=== PATIENT | female | born 1975 ===

== ENCOUNTER 2019-06-11 05:20 | Inpatient (IN) | payer OTHER ==
--- NOTE | 2019-06-10 13:27 | NUR ---
ADMITTED PT AND GAVE INSTRUCTIONS VIA [employer] #[id number].
[2019-06-11] VITALS (16 sets, daily range): BP systolic 104–158; BP diastolic 55–86
[~2019-06-11] VITALS: Ht 157.5 cm; Wt 88.5 kg
[2019-06-11] MEDS ORDERED: TOPIRAMATE25 MG ORAL (06:07)
[2019-06-11] MEDS ORDERED: JUNEL FE 1 MG-1 EACH PO (06:07)
[2019-06-11] MEDS ORDERED: ZANTAC150 MG ORAL (06:07)
[2019-06-11] MEDS ORDERED: LR 1000ml 1,000 ML IVLG SCH (06:17)
--- NOTE | 2019-06-11 06:19 | Anethesia Preoperative Eval ---
Anesthesia Pre-op PMH/ROS General Date of Evaluation: Jun 11, 2019 Time of Evaluation: 06:54 Anesthesiologist: David ASA Score: ASA 3 Mallampati Score Class I : Soft palate, uvula, fauces, pillars visible Class II: Soft palate, uvula, fauces visible Class III: Soft palate, base of uvula visible Class IV: Only hard plate visible Mallampati Classification: Class II Surgeon: Codey Diagnosis: Back Pain Surgical Procedure: Bilateral L4-5 Microdecompression Anesthesia History: none Family History: no anesthesia problems Allergies: Coded Allergies: No Known Allergies (Unverified , 06/10/19) Medications: see eMAR Patient NPO?: Yes NPO Date: Jun 10, 2019 NPO Time: 2129 Past Medical History Cardiovascular: Reports: HTN Gastrointestinal/Genitourinary: Reports: GERD Neurologic/Psychiatric: Reports: other - Migranes Endocrine: Reports: DM Other: obesity - BMI37 PSxH Narrative: Breast Aug, Abdominoplasty Anesthesia Pre-op Phys. Exam Physician Exam Last Vital Signs Date Time Temp Pulse Resp B/P (MAP) Pulse Ox O2 Delivery O2 Flow Rate FiO2 06/11/19 05:52 Room Air Constitutional: NAD Neurologic: CN 2-12 intact Cardiovascular: RRR Respiratory: CTA Gastrointestinal: S/NT/ND Airway Exam Mallampati Score: Class II MO: full ROM: limited Teeth: intact Anesthesia Pre-op A/P Labs Urine Test Test 06/11/19 05:35 Urine HCG, Qualitative Negative (NEGATIVE) Risk Assessment & Plan Assessment: ASA 3 Plan: GA, SED, GlideScope Go Status Change Before Surgery: No Pre-Antibiotics Dru Grams Ancef IV Given Within 1 Hr of Incision: Yes Time Given: 07:11 Man Hernandez MD Jun 11, 2019 06:19
[2019-06-11] MEDS ORDERED: Rocuronium Bromide 50mg/5ml Inj IV ONE (06:21)
[2019-06-11] MEDS ORDERED: oxyCODONE HCL/Acetaminophen 5/325mg ORAL PRN (06:30)
[2019-06-11] MEDS ORDERED: Atropine Sulfate 0.4mg/ml inj IVP PRN (06:30)
[2019-06-11] MEDS ORDERED: Labetalol 5mg/ml 20ml vial IV PRN (06:30)
[2019-06-11] MEDS ORDERED: Midazolam 2mg/2ml Inj IVP PRN (06:30)
[2019-06-11] MEDS ORDERED: Meperidine 50mg/ml Inj(FOR RIGORS ONLY) IVP PRN (06:30)
[2019-06-11] MEDS ORDERED: HYDROcodone/Acetamin 5/325 tab ORAL PRN (06:30)
[2019-06-11] MEDS ORDERED: fentaNYL 100 mcg/2 mL IV PRN (06:30)
[2019-06-11] MEDS ORDERED: Metoclopramide 10mg/2ml Inj IVP PRN (06:30)
[2019-06-11] MEDS ORDERED: Acetaminophen (Non formulary) 100 ML IV ONE (06:30)
[2019-06-11] MEDS ORDERED: DiphenhydrAMINE 50mg/ml Inj IVP PRN (06:30)
[2019-06-11] MEDS ORDERED: LORazepam Inj 2mg/ml 1ml IV PRN (06:30)
[2019-06-11] MEDS ORDERED: Hydromorphone 0.5mg/0.5ml inj IVP PRN (06:30)
[2019-06-11] MEDS ORDERED: HYDROcodone/Acetamin 7.5/325 tab ORAL PRN (06:30)
[2019-06-11] MEDS ORDERED: Bupivacaine w/Epi 0.5% 30ml Vial INJ ONE (06:36)
[2019-06-11] MEDS ORDERED: Bacitracin 50000 Units Vial ONE (06:36)
[2019-06-11] MEDS ORDERED: Gelfoam Size TOPIC ONE (06:36)
[2019-06-11] MEDS ORDERED: Thrombin 5000 units TOPIC ONE ×2 (06:36→06:37)
[2019-06-11] MEDS ORDERED: Lidocaine 1% MPF 10mg/ml 5ml ONE (06:45)
[2019-06-11] MEDS ORDERED: Sodium Chloride 10ml vial INJ ONE (06:45)
[2019-06-11] MEDS ORDERED: Lidocaine 1% Plain 30 ml INJ ONE (06:45)
[2019-06-11] MEDS ORDERED: fentaNYL 100 mcg/2 mL IV ONE (06:46)
--- NOTE | 2019-06-11 06:57 | Pre-Procedure Note/Attestation ---
Pre-Procedure Note/Attestation Complete Prior to Procedure Planned Procedure: bilateral Indications for Procedure Pre-Operative Diagnosis: Transitional segment L5/s1 HNP L4/5 Attestation I attest that I discussed the nature of the procedure; its benefits; risks and complications; and alternatives (and the risks and benefits of such alternatives ), prior to the procedure, with the patient (or the patient's legal termite control service representative). I attest that, if there was a reasonable possibility of needing a blood transfusion, the patient (or the patient's legal termite control service representative) was given the [facility] standardized written summary, pursuant to the [place] Blood Safety Act ([place] Health and Safety Code # 1645, as amended). I attest that I re-evaluated the patient just prior to the surgery and that there has been no change in the patient's H&P, except as documented below: Fortino Alegre MD Jun 11, 2019 06:57
[2019-06-11] MEDS ORDERED: Sterile Water Irrig 1000ml IRRIG ONE (07:00)
[2019-06-11] MEDS ORDERED: LR 1000ml ONE (07:00)
[2019-06-11] MEDS ORDERED: Propofol 1,000mg/ 100ml btl IV ONE (07:00)
[2019-06-11] MEDS ORDERED: NS Irrig 1000ml IRRIG ONE ×2 (07:16→07:49)
--- NOTE | 2019-06-11 07:43 | Immediate Post-Op Evaluation ---
Immediate Post-Op Evalulation Immediate Post-Op Evalulation Procedure: Bilateral L4-5 Microdecompression Date of Evaluation: Jun 11, 2019 Time of Evaluation: 09:49 IV Fluids: 600 LR Blood Products: 0 Estimated Blood Loss: 25 Urinary Output: 0 Blood Pressure Systolic: 158 Blood Pressure Diastolic: 86 Pulse Rate: 67 Respiratory Rate: 16 O2 Sat by Pulse Oximetry: 100 Temperature (Fahrenheit): 98.5 Pain Score (1-10): 2 Nausea: No Vomiting: No Complications 0 Patient Status: awake, reacts, patent, extubated, none Hydration Status: adequate Dru Grams Ancef IV Given Within 1 Hr of Incision: Yes Time Given: 07:11 Man Hernandez MD Jun 11, 2019 07:43
--- NOTE | 2019-06-11 07:44 | 48 Hour Post Anesthesia Eval ---
Post Anesthesia Evaluation Procedure: Bilateral L4-5 Microdecompression Date of Evaluation: Jun 11, 2019 Time of Evaluation: 12:16 Blood Pressure Systolic: 144 0: 73 Pulse Rate: 74 Respiratory Rate: 18 Temperature (Fahrenheit): 98.6 O2 Sat by Pulse Oximetry: 100 Airway: patent Nausea: No Vomiting: No Pain Intensity: 3 Hydration Status: adequate Cardiopulmonary Status: Stable Mental Status/LOC: patient returned to baseline Follow-up Care/Observations: 0 Post-Anesthesia Complications: 0 Follow-up care needed: ready to discharge Man Hernandez MD Jun 11, 2019 07:44
[2019-06-11] MEDS ORDERED: Glycopyrrolate 0.2mg/ml 1ml Vial ONE (08:49)
[2019-06-11] MEDS ORDERED: Neostigmine 1mg/ml 10ml Inj ONE (08:49)
--- NOTE | 2019-06-11 09:15 | Brief Operative Note ---
Immediate Post Operative Note Operative Note Chief Complaint: left greater than right buttocks pain with ambulation and sitting. LBP. Pre-op Diagnosis: Transitional segment L5/s1 HNP L4/5 Procedure: Left L4/5, Bear L5/S1 microdecompression Post-op Diagnosis: same- Findings: consistent w/pre-op dx studies Anesthesia: general Specimen: none Complications: none Condition: stable Fluids: per record Estimated Blood Loss: minimal Drains: none Implant(s) used?: No Fortino Alegre MD Jun 11, 2019 09:15
[2019-06-11] MEDS ORDERED: HYDROmorphone 1mg/ml Carpuject IVP PRN (10:15)
--- NOTE | 2019-06-11 11:33 | Diagnostic Imaging Report ---
Indication: Intraoperative imaging COMPARISON: None FINDINGS: 3 fluoroscopic images were obtained intraoperatively. Localization images posteriorly at L4-5 demonstrated on multiple crosstable views. Fluoroscopic time 13 seconds. IMPRESSION: Intraoperative imaging as described above
--- NOTE | 2019-06-11 11:42 | NUR ---
NURSE NOTES: Patient admitted to unit at 1050 via bed, accompanied by RN. Received report from Inge VARGAS. Patient is awake but drowsy, no acute distress noted, patient reporting she is comfortable at this time. Posterior dressing assessed clean, dry, intact. Neuro check assessed intact, on 2L NC. Belongings brought and reviewed by outpatient nurse. Patient's home medications reviewed and sent to pharmacy. Accuchecks scheduled q8 hours per order. Right hand IV intact and patent. Patient oriented to room/unit, updated on plan of care for the day. Per report from PACU nurse, Dr. Tran on internal med for patient, will contact for further orders. Side rails upx3, bed low and locked, call light in reach. Will continue to monitor.
[2019-06-11] MEDS: HYDROcodone/Acetamin 10/325 tab ORAL PRN ×2 (13:52→18:35)
--- NOTE | 2019-06-11 14:49 | NUR ---
PT EVALUATION NOTE Patient seen for initial evaluation, see complete evaluation for details. Patient presents with pain and impaired mobility s/p lumbar surgery. Patient requires SBA for bed mobility, transfers and ambulation with FWW. Patient educated in back precautions and log roll technique. Patient will benefit from skilled inpatient PT intervention to educate patient in proper mobility observing back precautions and to increase endurance for mobility. Anticipate discharge home once medically cleared by MD. DME needs to be determined based on patient's progress, may benefit from use of FWW. Addendum: 06/11/19 at 1450 by MARKO LEPE PT Amended: Links added.
[2019-06-11] MEDS: ceFAZolin 1gm/50ml Premix 50 ML IV SCH ×2 (15:24→23:29)
--- NOTE | 2019-06-11 15:51 | NUR ---
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 98.5 HR 73 RR 16 B/P 158/84 SIMPLE MASK IS: IVF NS @ 100ML/HR CEFAZOLIN IV ADMITTED TO MED/SURG MED/SURG STATUS
--- NOTE | 2019-06-11 16:02 | NUR ---
NURSE NOTES: Contacted Dr. Tran regarding patient's home medications, did not receive contact back from .
--- NOTE | 2019-06-11 16:36 | General Progress Note ---
Assessment/Plan Assessment/Plan: Transitional segment L5/s1 HNP L4/5 Left L4/5, Bear L5/S1 microdecompression PLAN 1. incentive spirometry 2. SCD 3. PT evaluation and therapy 4. Hydration 5. Pain management 6. discharge once stable with outpatient follow up Subjective Allergies: Coded Allergies: No Known Allergies (Unverified , 06/10/19) Subjective care noted and reviewed post op care noted Objective Last 24 Hour Vital Signs Date Time Temp Pulse Resp B/P (MAP) Pulse Ox O2 Delivery O2 Flow Rate FiO2 06/11/19 16:00 97.7 73 19 118/67 (84) 97 06/11/19 13:50 97.7 70 16 124/74 (91) 98 06/11/19 12:50 97.1 76 16 123/76 (92) 96 06/11/19 11:50 98.2 75 16 118/73 (88) 97 06/11/19 11:20 98.4 76 16 118/72 (87) 95 06/11/19 10:50 97.9 69 17 123/77 (92) 96 06/11/19 10:45 99.3 68 13 126/76 98 Nasal Cannula 3 06/11/19 10:33 99.3 06/11/19 10:30 66 15 121/71 97 Nasal Cannula 3 06/11/19 10:15 69 16 125/67 96 Nasal Cannula 3 06/11/19 10:03 69 14 135/82 97 Nasal Cannula 3 06/11/19 09:55 71 19 146/86 100 Simple Mask 6 06/11/19 09:48 70 20 139/81 100 Simple Mask 6 06/11/19 09:43 70 20 143/82 100 Simple Mask 6 06/11/19 09:38 98.5 73 16 158/86 99 Simple Mask 6 06/11/19 09:37 74 18 100 06/11/19 09:36 67 16 100 06/11/19 05:52 Room Air Intake and Output 06/10/19 06/11/19 19:00 07:00 # Voids 1 Laboratory Tests 06/11/19 05:35: Urine HCG, Qualitative Negative Height (Feet): 5 Height (Inches): 2.00 Weight (Pounds): 195 Objective WDWN NAD clear breath sounds bilaterally without rhonchi or wheeze [id number] without MRG NABS nontender no HSM no CCE nonfocal Marcus Tran MD Jun 11, 2019 16:36
--- NOTE | 2019-06-11 19:39 | NUR ---
HAND-OFF: Report given to Dayanna VARGAS.
[2019-06-12] VITALS (7 sets, daily range): BP systolic 104–130; BP diastolic 55–80
[2019-06-12] MEDS: HYDROcodone/Acetamin 10/325 tab ORAL PRN ×6 (00:31→21:06)
--- NOTE | 2019-06-12 03:33 | NUR ---
NURSES NOTES: Initially received pt sleeping. Upon rounds, patient was, up, alert and oriented x4. Answered all questions appropriately. No signs or symptoms of distress, unlabored breathing pattern. Claims that Withee 10-325 mg given at 1830 was effective, stating pain level was acceptable at a 3. All due meds given, accu-check done bed side. 0030 Pt stated pain was 6/10. Withee 10-325 mg given 0030- effective. Pt requested that pain med be given ATC from now on to avoid breakthrough pain. Bed at lowest level, call light within reach. Pt will continue to be monitored.
--- NOTE | 2019-06-12 07:29 | NUR ---
HAND-OFF: Report given to VIRGINIA Verma.
--- NOTE | 2019-06-12 08:38 | NUR ---
NURSE NOTES: received patient sitting in a chair having breakfast. gael soaresjoaquin applied bilateral LE. IS @ bedside and utilizes it. no acute distress noted. surgical drsg on the lower back dry and intact. uses walker to ambulate. IV access patent and intact. went back to bed. SCDs' applied on BLE. IVF infusing well. call light is within reach. siderails are upx3 and in the lowest position. bed is locked @ all times. will cont to monitor.
--- NOTE | 2019-06-12 15:48 | General Progress Note ---
Assessment/Plan Assessment/Plan: Transitional segment L5/s1 HNP L4/5 Left L4/5, Bear L5/S1 microdecompression PLAN 1. incentive spirometry 2. SCD 3. PT evaluation and therapy 4. Hydration- taking adequate 5. Pain management 6. discharge once stable with outpatient follow up Subjective Allergies: Coded Allergies: No Known Allergies (Unverified , 06/10/19) Subjective care noted and reviewed post op care noted tolerating fluids ambulating Objective Last 24 Hour Vital Signs Date Time Temp Pulse Resp B/P (MAP) Pulse Ox O2 Delivery O2 Flow Rate FiO2 06/12/19 13:36 98.4 06/12/19 12:00 98.4 80 18 124/80 (95) 96 06/12/19 09:00 Room Air 06/12/19 08:58 70 119/71 (87) 06/12/19 08:00 98.7 77 17 109/60 (76) 97 06/12/19 04:00 98.2 74 18 120/73 (89) 96 06/12/19 00:00 98.6 77 16 104/55 (71) 96 06/11/19 21:00 Room Air 06/11/19 20:00 98.6 98 18 104/55 (71) 77 06/11/19 16:00 97.7 73 19 118/67 (84) 97 Intake and Output 06/11/19 06/12/19 19:00 07:00 Intake Total 1890 ml 1050 ml Output Total 25 ml Balance 1865 ml 1050 ml Intake Oral 240 ml IV Total 1650 ml 1050 ml Output Estimated Blood Loss 25 ml # Voids 2 Height (Feet): 5 Height (Inches): 2.00 Weight (Pounds): 195 Objective WDWN NAD clear breath sounds bilaterally without rhonchi or wheeze [id number] without MRG NABS nontender no HSM no CCE nonfocal Marcus Tran MD Jun 12, 2019 15:48
--- NOTE | 2019-06-12 19:19 | NUR ---
HAND-OFF: Report given to Roselyn.
[2019-06-13 00:24] VITALS: BP 104/57
[2019-06-13] MEDS: HYDROcodone/Acetamin 10/325 tab ORAL PRN ×3 (01:03→09:05)
[2019-06-13 04:00] VITALS: BP 134/79
--- NOTE | 2019-06-13 04:45 | NUR ---
NURSES NOTES: Patient alert and oriented x4. No outward signs or symptoms of distress. Breathing is even and unlabored. Patient requests that norco 10-325 mg be given ATC. Patient will continue to be monitored. Bed at lowest level. Call light within reach.
--- NOTE | 2019-06-13 07:34 | NUR ---
HAND-OFF: Report given to Nuzhat Ivy RN.
--- NOTE | 2019-06-13 07:35 | NUR ---
NURSE NOTES: Received report from SAM Alan. Rounding done with outgoing nurse. Pt a/o x 4, in bed. No respiratory distress noted. c/o back surgical pain as 5/10. Pain medicine will be given as MD ordered. Bed in lowest position, call light within reach. Will continue to monitor.
[2019-06-13 08:00] VITALS: BP 131/74
--- NOTE | 2019-06-13 08:53 | NUR ---
NURSE NOTES: Reconcile meds with Dr. Tran. ordered continue all home meds.
--- NOTE | 2019-06-13 08:53 | General Progress Note ---
Assessment/Plan Assessment/Plan: Transitional segment L5/s1 HNP L4/5 Left L4/5, Bear L5/S1 microdecompression PLAN 1. incentive spirometry 2. SCD 3. PT evaluation and therapy 4. Hydration- taking adequate 5. Pain management 6. discharge home; 4 day rx of norco given impression, plan, and exam edited and reviewed in detail care discussed with RN Subjective Allergies: Coded Allergies: No Known Allergies (Unverified , 06/10/19) Subjective care noted and reviewed post op care noted tolerating fluids ambulating Objective Last 24 Hour Vital Signs Date Time Temp Pulse Resp B/P (MAP) Pulse Ox O2 Delivery O2 Flow Rate FiO2 06/13/19 08:00 97.4 74 18 131/74 (93) 95 06/13/19 04:00 98.1 75 17 134/79 (97) 95 06/13/19 00:24 99.0 82 18 104/57 (73) 96 06/12/19 21:00 Room Air 06/12/19 20:00 98.1 78 17 130/75 (93) 96 06/12/19 17:35 99.1 06/12/19 16:00 99.1 79 16 122/57 (78) 95 06/12/19 12:00 98.4 80 18 124/80 (95) 96 06/12/19 09:00 Room Air 06/12/19 08:58 70 119/71 (87) Intake and Output 06/12/19 06/13/19 18:59 06:59 Intake Total 640 ml Balance 640 ml Intake Oral 240 ml IV Total 400 ml Height (Feet): 5 Height (Inches): 2.00 Weight (Pounds): 195 Objective WDWN NAD clear breath sounds bilaterally without rhonchi or wheeze [id number] without MRG NABS nontender no HSM no CCE nonfocal Marcus Tran MD Jun 13, 2019 08:53
[2019-06-13] MEDS ORDERED: NORCO 5-325 TA1 EACH ORAL (09:01)
--- NOTE | 2019-06-13 10:55 | NUR ---
NURSE NOTES: Discharge instruction was given. Medication pt brought from home was given. IV removed. Arm band removed. Pt a/o x 4. Pt discharged with her family in stable condition.
--- NOTE | 2019-06-13 22:45 | Operative Note - Dictated ---
DATE OF OPERATION: 06/11/2019 PREOPERATIVE DIAGNOSES: 1. Transitional segment, lumbosacral spine. 2. Stenosis with traumatic aggravation, L5-S1 and left L4-L5. POSTOPERATIVE DIAGNOSES: 1. Transitional segment, lumbosacral spine. 2. Stenosis with traumatic aggravation, L5-S1 and left L4-L5. PROCEDURES PERFORMED: 1. Bilateral L5-S1 hemilaminotomy with decompression foraminotomy. 2. Left L4-L5 hemilaminotomy with decompression foraminotomy. 3. Modifier 22 applied, as the patient has significantly high BMI. 4. Use of intraoperative microscope. SURGEON: Fortino Alegre M.D. TIMBER INSPECTOR: None. ANESTHESIOLOGIST: Man Hernandez M.D. ANESTHESIA: General endotracheal combined anesthetic. INTRAOPERATIVE FINDINGS: 1. Confirmed stenosis, L5-S1 bilaterally. 2. Left mild lateral recess stenosis, L4-L5. COMPLICATIONS: None. ESTIMATED BLOOD LOSS: Minimal. Healy not used. INDICATIONS FOR PROCEDURE: A pleasant female with a significant traumatic spondylopathy of L4-L5 and L5-S1. The patient had transitional segment and MRI reports may indicate decompressed level to the L4-L5. Potentially the first motion segment is considered to be L5-S1. The patient failed a reasonable amount of conservative treatment. She had a clinical lumbar radiculopathy, buttock pain and low back pain with difficulty standing secondary to stenosis at L5-S1 and mild stenosis and disk bulge of L4-L5. The patient was consented in the office for single-level microdecompression. However, after discussion with the patient and the patient had predominantly left-sided lumbosacral pain as well as buttock pain and in light of the MRI demonstrating mild lateral recess stenosis at L4-L5 as well, I decided to include left L4-L5 microdecompression procedure as this would not increase the risk significantly and would benefit the patient more than the risk than complicate the patient's surgery. DESCRIPTION OF PROCEDURE: The patient was positively identified and subsequently taken to the operating room intubated by the anesthesiologist and subsequently positioned prone on the Richi frame with the abdomen hanging free. Lumbodorsal region was marked and a localizing x-ray was taken. Subsequently, after prepping and draping in the usual sterile fashion, antibiotics were delivered and surgical pause was undertaken. Incision was made and the L5-S1 level was exposed. A localizing x-ray was taken. Subsequently, after self-retaining retractors brought onto the field, the right side L5-S1 hemilaminotomy with decompression foraminotomy was completed successfully with good decompression of the foramen as well as lateral recess under direct visualization with the microscope. I mobilized the retractors to the left side and performed a similar decompression to left L4-L5 and left L5-S1. The patient tolerated the procedures well. Intraoperative findings were lateral recess stenosis of L4-L5 on the left side and right L5-S1 level was significantly stenotic with the disc protrusion as well as foraminal stenosis noted. Wound was copiously irrigated. No complications were noted. Hemostasis was obtained and subsequently the fascia was reapproximated with #1 Vicryl, 2-0 Vicryl for the dermis and 3-0 Monocryl for the skin. There were no complications. Dressings were applied and the patient was turned supine in stable condition. The patient was taken to the recovery room in stable condition. Fortino Alegre M.D. DR: JACKELINE JOB#: [id number] CC:
--- NOTE | 2019-06-14 07:36 | Discharge Summary ---
Discharge Summary Hospital Course Date of Admission Jun 11, 2019 at 05:20 Date of Discharge Jun 13, 2019 at 10:30 Admitting Diagnosis lumbar radiculopathy Reason for Hospitalization: elective surgery HPI Yennifer Garrido , 44 year old female , was admitted on Jun 11, 2019 at 05:20 for Lumbar Radiculopathy. Patient was admitted for elective surgery. Consultations Dr Tran -IM Procedures s/p 06/11/[address] Alegre 1. Bilateral L5-S1 hemilaminotomy with decompression foraminotomy. 2. Left L4-L5 hemilaminotomy with decompression foraminotomy. 3. Modifier 22 applied, as the patient has significantly high BMI. 4. Use of intraoperative microscope. Hospital Course status post surgery course of recovery uneventful initially IV fluids s/p perioperative antibiotics neurovascular status closely monitored, remained stable incision clean , dry , and intact pain management was addressed , and pain was controlled remained hemodynamically stable ambulated with PT fall precautions maintained; safe for ambulation DVT prophylaxis with SCD provided use of incentive spirometry was encouraged while in the bed tolerated diet , IV fluids discontinued antiemetics were on board as needed voided freely bowel regimen instituted patient was stable for discharge discharge instructions provided prescription for analgesic provided follow up with surgeon in clinic as outpatient as advised by surgeon FINAL DIAGNOSES 1. Transitional segment, lumbosacral spine. 2. Stenosis with traumatic aggravation, L5-S1 and left L4-L5. 3. Herniated nucleus pulposa L4-5 4. s/p Left L4/5, bilateral L5/S1 microdecompression Discharge Medications Continued Medications: Hydrocodone Bit/Acetaminophen 5-325* ([place] 5-325*) 1 Each Tablet 1 TAB ORAL Q4H PRN for For Pain, #20 TAB 0 Refills (This prescription has been renewed) Noreth A-Et Estra/Fe Fumarate (Junel Fe 1 Mg-20 Mcg Tablet) 1 Each Tablet 1 EACH PO DA, TAB (This prescription has been renewed) Ranitidine Hcl* (Zantac*) 150 Mg Tablet 300 MG ORAL HS, #30 TAB 0 Refills Topiramate* (Topamax*) 25 Mg Tablet 25 MG ORAL TWICE A DAY, #60 TAB 0 Refills (This prescription has been renewed) Discharge Condition Upon Discharge: stable Discharge Disposition Patient was discharged to Home () Discharge Instructions Discharge Instructions Special Instructions I have been assigned to complete a D/C Summary on this account. I was not involved in the patient management Porsha Guzman NP Jun 14, 2019 07:36
== END 2019-06-13 10:30 | disposition home or self-care (01) | DRG 517 ==
LOC: SDSOVERFLO 05:20 → 3E 10:53
PROC: 01NR0ZZ Release Sacral Nerve, Open Approach (ICD-10-PCS; principal; 2019-06-11 07:00)
PROC: 01NB0ZZ Release Lumbar Nerve, Open Approach (ICD-10-PCS; principal; 2019-06-11 07:00)
DX: M51.16 Intervertebral disc disorders with radiculopathy, lumbar region (principal); Q76.49 Other congenital malformations of spine, not associated with scoliosis; M48.07 Spinal stenosis, lumbosacral region; M48.061 Spinal stenosis, lumbar region without neurogenic claudication; I10 Essential (primary) hypertension; K21.9 Gastro-esophageal reflux disease without esophagitis; E11.9 Type 2 diabetes mellitus without complications; E66.9 Obesity, unspecified; Z68.37 Body mass index [BMI] 37.0-37.9, adult
CPT/HCPCS: 36415; 72020; 76000; 81025; 82962; 86850; 86900; 86901; 87081; J2405; J2710

== ENCOUNTER 2019-06-19 14:41 | Emergency (ER) | payer OTHER ==
[~2019-06-19] VITALS: Ht 160 cm; Wt 88.5 kg
[~2019-06-19 14:41] MED LIST: JUNEL FE 1 MG-1 EACH PO; NORCO 5-325 TA1 EACH ORAL; TOPIRAMATE25 MG ORAL; ZANTAC150 MG ORAL
[2019-06-19 14:49] VITALS: BP 127/73
--- NOTE | 2019-06-19 14:55 | NUR ---
ED Nurse Note: patient walked into ED from home and requesting her back surgery site to be checked, patient reports that surgical tape is "getting inside her surgical wound." patient is alert awake x4 ambulatory steady giat, breathing unlabored and even.
--- NOTE | 2019-06-19 15:14 | Emergency Room Report ---
History of Present Illness General Chief Complaint: General Complaint Source: Patient Present Illness HPI 44-year-old female patient presents to the ER complaining of " my incision site wound dressing is stuck in wound". Reports that she had lower back surgery [address] Alegre. Denies fever vomiting chills. Denies denies pain. Denies other aggravating or relieving factors. States able to walk without difficulty. Allergies: Coded Allergies: No Known Allergies (Unverified , 06/10/19) Patient History Past Medical History: see triage record Last Menstrual Period: 04/2019 Now: No Reviewed Nursing Documentation: PMH: Agreed; PSxH: Agreed Nursing Documentation-PMH Past Medical History: No History, Except For Hx Cardiac Problems: Yes Hx Asthma: Yes Hx Diabetes: Yes - PREDIABETIC-DIET CONTROLLED Hx Cancer: No Hx Gastrointestinal Problems: No Hx Neurological Problems: Yes - HX MIGRAINES-LAST EPISODE 06/03/2019 Review of Systems All Other Systems: negative except mentioned in HPI Physical Exam Vital Signs Date Time Temp Pulse Resp B/P (MAP) Pulse Ox O2 Delivery O2 Flow Rate FiO2 06/19/19 14:49 99.3 85 18 127/73 (91) 96 Room Air Sp02 EP Interpretation: reviewed, normal General Appearance: well appearing, no apparent distress, alert, GCS 15, non- toxic Head: normocephalic, atraumatic Eyes: bilateral eye normal inspection, bilateral eye PERRL ENT: hearing grossly normal, normal pharynx, no angioedema, normal voice, uvula midline, moist mucus membranes Neck: full range of motion Respiratory: lungs clear, normal breath sounds, no rhonchi, no respiratory distress, no accessory muscle use, no wheezing, speaking full sentences Musculoskeletal: back normal, digits/nails normal, gait/station normal, normal range of motion, non-tender Neurologic: alert, oriented x3, responsive, motor strength/tone normal, sensory intact Skin: other - 2-3cm healing incision site at lower lumbar spine, clean, dry, intact, no drainage, scabbing noted, minimal erythema at incision site, no surrounding erythema, no drainage, no warmth to touch, bandage lying over wound not in wound Medical Decision Making PA Attestation Dr. Rouse is my supervising Physician whom patient management has been discussed with. Diagnostic Impression: Primary Impression: Presence of surgical incision ER Course Pt. presents to the ED c/o surgical incision site wound dressing stuck in incision. Ddx considered but are not limited to surgical pain, wound infection, cellulitis , wound dressing complication. Vital signs: are WNL, pt. is afebrile ER COURSE: Incision site appears to be healing well, Steri-Strips noted on top not stuck in wound, will replace Steri-Strips. Wound cleaned and dressed in a sterile manner. Follow-up with surgeon at scheduled postop appointment. DISCHARGE: At this time pt is stable for d/c to home. Patient is resting comfortably, in no acute distress, nontoxic appearing, talking without difficulty. Patient to take medications as instructed Will provide with patient care instructions and any necessary prescriptions. Care plan and follow-up instructions provided. Patient instructed to follow-up with primary care provider in 3 - 5 days. Patient questions asked and answered. Patient reports understanding and agreement to treatment plan. ER precautions given. Patient instructed to return to ER immediately for any new or worsening of symptoms including but not limited to increasing SOB, persistent fever, chest pain, intractable vomiting. - Please note that this Emergency Department Report was dictated using [employer] tender technology software, occasionally this can lead to erroneous entry secondary to interpretation by the dictation equipment. Last Vital Signs Date Time Temp Pulse Resp B/P (MAP) Pulse Ox O2 Delivery O2 Flow Rate FiO2 06/19/19 14:49 99.3 85 18 127/73 (91) 96 Room Air Status: improved Disposition: HOME, SELF-CARE Condition: Stable Patient Instructions: Incision Care, [id number] Additional Instructions: Followup with surgeon at scheduled appointment. Take medications as directed. Patient questions asked and answered. ER precautions given, patient instructed to return to ER immediately for any new or worsening of symptoms including but not limited to fever, vomiting, chills, worsening of pain symptoms. Endy Hodges Jun 19, 2019 15:14
[2019-06-19 15:24] VITALS: BP 127/73
--- NOTE | 2019-06-19 15:25 | NUR ---
ER DISCHARGE NOTE: Patient is cleared to be discharged per GABRIEL Simon , pt is aox4, on room air, with stable vital signs. pt was given dc instructions, pt was able to verbalize understanding, pt id band removed without complications. pt is able to ambulate with steady gait. pt took all belongings.
== END 2019-06-19 15:25 | disposition home or self-care (01) ==
LOC: EMR 15:05
DX: Z48.01 Encounter for change or removal of surgical wound dressing (principal); J45.909 Unspecified asthma, uncomplicated; R73.03 Prediabetes; Z98.890 Other specified postprocedural states
CPT/HCPCS: 99282